=== PATIENT | male | born 1955 | race Caucasian/White ===

== ENCOUNTER 2016-10-27 14:44 | Inpatient (IN) | payer MEDICARE ==
[~2016-10-27] VITALS: Ht 198.1 cm; Wt 84.0 kg
[2016-10-27] MEDS ORDERED: [UNRECOGNIZED DRUG - REMARK] (15:04)
[2016-10-27] MEDS ORDERED: [UNRECOGNIZED DRUG - REMARK] (15:04)
--- NOTE | 2016-10-27 15:20 | NUR ---
Dr. Rahman arrived and is at bedside.
--- NOTE | 2016-10-27 15:40 | NUR ---
Three way f/c (22fr) placed by Dr. Meade, bladder irrigation started per order.
[2016-10-27 17:07] LABS: *BLOOD, URINE 3+ (NEGATIVE); *COLOR,URINE RED (YELLOW); *KETONES,URINE NEGATIVE (NEGATIVE); *PROTEIN,URINE 2+ (NEGATIVE); *UROBILINOGEN,URINE 0.2 E.U./dl (NORMAL); NITRITE, URINE NEGATIVE (NEGATIVE); UGLUCOSE NEGATIVE (NEGATIVE)
[2016-10-27 17:13] LABS: *BILIRUBIN,URIN NEGATIVE (NEGATIVE); *CLARITY,URINE BLOODY (CLEAR); LEUKOCYTE ESTERASE ,URINE 1+ (NEGATIVE)
[2016-10-27 17:14] LABS: RBC,URINE TNTC /HPF (0-3)
--- NOTE | 2016-10-27 17:27 | NUR ---
Pt trans to m/s floor, NAD noted.
[2016-10-27] MEDS ORDERED: OXCA600T5 PO (18:16)
[2016-10-27] MEDS ORDERED: MEMA10TA PO (18:16)
[2016-10-27 18:23] VITALS: BP 123/76
--- NOTE | 2016-10-27 18:28 | NUR ---
NEW ADMISSION TO ROOM 204. PATIENT ALERT AND ORIENTED IN NO ACUTE DISTRESS. DENIED PAIN. CONTINUES WITH URINE IRRIGATION. [address] WITH URINE BRIGHT RED IN COLOR. PATIENT SEEN BY DR. LUNA.
--- NOTE | 2016-10-27 19:00 | NUR ---
Received patient appears sleeping, but easily arousable when name called. Denies any pain at this time. On continues bladder irrigation as ordered with bright red urine output. No blood streaks/clots noted. F/C patency checked, no occlusion noted. Continue to monitor.
[2016-10-27 20:00] VITALS: BP 117/58
--- NOTE | 2016-10-27 23:12 | NUR ---
Ambulated to the bathroom with minimal assist. Had small BM this time. Urine needs close monitoring for increase hematuria
--- NOTE | 2016-10-28 02:39 | NUR ---
Still complaining of constipation, prune juice was given. Patient stated that he had regular BM and had one this AM but normally he goes to the BR 3x a day.
[2016-10-28 04:22] VITALS: BP 100/53
--- NOTE | 2016-10-28 05:18 | NUR ---
Patient became diaphoretic/clammy, weak and dizzy when he tried to force himself to defecate. VS taken 93/60, 93, 98%, 97.9. Blood sugar 121 mg/dl. Assisted back to bed with 2 people assist. Continue to monitor.
--- NOTE | 2016-10-28 06:33 | NUR ---
Resting comfortably at this time. Denies any dizziness, weakness or clammy. Continue to monitor.
--- NOTE | 2016-10-28 07:45 | NUR ---
received patietn on bed, many concerns with meds, bladder irrigation and bowel movements and bedpan use. made comfortable, reassured with plan of care and md collaboration. verbalized understanding.
[2016-10-28 08:27] LABS: BASOPHILS % (AUTO) 0.2 % (0.0-2.0); EOSINOPHILS # (AUTO) 0.3 K/uL (0.0-0.7); EOSINOPHILS % (AUTO) 2.1 % (0.0-7.0); HEMATOCRIT 40.8 % (40-50); HEMOGLOBIN 13.2 G/DL (14.0-18.0); LYMPHOCYTES # (AUTO) 1.4 K/UL (0.8-4.8); LYMPHOCYTES % (AUTO) 10.8 % (20.5-51.5); MEAN CORPUSCULAR HEMOGLOBIN 29.7 UUG (27.0-31.0); MEAN CORPUSCULAR HGB CONC 32 g/dL (32.0-37.0); MEAN CORPUSCULAR VOLUME 91.9 FL (82.0-92.0); MONOCYTES # (AUTO) 1.4 K/UL (0.1-1.30); MONOCYTES % (AUTO) 10.8 % (0.0-11.0); NEUTROPHILS # (AUTO) 9.6 K/UL (1.8-8.9); NEUTROPHILS % (AUTO) 76.1 % (38.5-71.5); PLATELET COUNT (AUTO) 230 K/UL (150-450); RED BLOOD CELL COUNT(AUTO) 4.44 MIL/UL (4.7-6.1); WHITE BLOOD COUNT (AUTO) 12.7 K/UL (4.0-11.2)
[2016-10-28 09:02] LABS: BILIRUBIN,TOTAL 0.6 mg/dL (0.2-1.0); MAGNESIUM 1.6 mg/dL (1.8-2.4); PHOSPHOROUS 2.4 mg/dL (2.5-4.9); POTASSIUM 3.9 mmol/L (3.5-5.1); TOTAL PROTEIN, SERUM 6.9 g/dL (6.4-8.2)
--- NOTE | 2016-10-28 09:30 | NUR ---
dr waldron in , saw patient, dc bladder irrigation, tolerated well by patient.
--- NOTE | 2016-10-28 10:00 | NUR ---
urine pinkish with mucoid reddish , fluid encouraged, verbalized understanding
[2016-10-28 10:07] LABS: THYROID STIMULATING HORMONE 1.344 mIU/mL (0.358-3.740)
[2016-10-28 12:01] VITALS: BP 95/60
--- NOTE | 2016-10-28 12:30 | NUR ---
friend in, supportive of care, brought meds from home, sent to pharmacy per protocol.
[2016-10-28 15:40] VITALS: BP 102/62
--- NOTE | 2016-10-28 17:11 | NUR ---
visitor at bedside, supportive of patient care. urine with mucous reddish , yellow urine, denies discomfort.
--- NOTE | 2016-10-28 19:30 | NUR ---
RECEIVED PATIENT LAYING COMFORTABLY IN BED. HOB ELEVATED. NO ACUTE DISTRESS NOTED. SAFETY INITIATED. CALL LIGHT WITHIN REACH. PATIENT IS ALERT AND ORIENTED X 4. NO C/O PAIN. FACIAL SYMMETRY. IV ON THE LEFT A/C PATENT AND INTACT. TOMLIN CARE PROVIDED. SKIN CHECK, SACRAL REDNESS. WILL CONTINUE TO MONITOR.
[2016-10-28 19:44] VITALS: BP 116/68
--- NOTE | 2016-10-28 20:50 | NUR ---
PATIENT REFUSED TO TAKE HIS NAMENDA. HE STATES THAT "THE AM NURSE HAD ALREADY GIVEN IT TO ME FROM HIS HOME MEDS BEFORE SHE LEFT". WILL CONTINUE TO MONITOR.
[2016-10-28 22:48] VITALS: BP 113/86
--- NOTE | 2016-10-29 05:45 | NUR ---
PATIENT REQUEST TO USE THE TOILET. CHARGE NURSE ASHLEY ASSISTED HIM TO THE TOILET. HE MADE A BM. SHORTLY AFTER, HE BECAME DIAPHORETIC AND WEAK. ASSISTED HIM BACK TO THE BED. B/P WAS LOW. GAVE HIM SOME ORAL FLUIDS, RECHECKED B/P, WENT BACK UP. PATIENT STATES "I FEEL BETTER NOW". WILL CONTINUE TO MONITOR.
[2016-10-29 06:32] VITALS: BP 101/67
--- NOTE | 2016-10-29 06:33 | NUR ---
VSS. B/P WENT UP 102/64 HR 89. WILL CONTINUE TO MONITOR.
--- NOTE | 2016-10-29 06:37 | NUR ---
PATEINT SLEPT INTERMITTENTLY T/O SHIFT. YANETH VANEGAS DISTRESS NOTED. AT AROUND 0545, PATIENT REQUEST TO USE THE TOILET. CHARGE NURSE ASHLEY ASSISTED HIM TO THE TOILET, SHE NOTICED THAT HE BECAME DIAPHORETIC AND WEAK. CHECKED HIS B/P, IT WAS LOW, 89/66. ASSISTED HIM BACK TO BED. GAVE HIM 2 CRANBERRY JUICE TO DRINK. B/P IMPROVED 96/65. PATIENT STATES HE FEELS BETTER. COMFORT AND SAFETY MAINTAINED T/O SHIFT. TOMLIN CARE PROVIDED, URINE IS RED, NOT CLEAR. ZGAURD APPLIED. ALL NEEDS MET. WILL CONTINUE TO MONITOR.
--- NOTE | 2016-10-29 07:10 | NUR ---
Received report from sales facilitator nurse, patient requested to get up and use the restroom. Assisted patient ambulate to the restroom, noted pt to be very weak, diaphoretic, dizziness reports, and unsteady gait. patient safely ambulated to bathroom and back, loose stool noted around commode upon rising.
[2016-10-29 07:44] LABS: CREATININE 1.4 mg/dL (0.6-1.3); MAGNESIUM 1.7 mg/dL (1.8-2.4); PHOSPHOROUS 3.4 mg/dL (2.5-4.9); POTASSIUM 3.8 mmol/L (3.5-5.1)
[2016-10-29 07:47] LABS: BASOPHILS % (AUTO) 0.2 % (0.0-2.0); EOSINOPHILS # (AUTO) 0.2 K/uL (0.0-0.7); EOSINOPHILS % (AUTO) 1.9 % (0.0-7.0); LYMPHOCYTES # (AUTO) 1.9 K/UL (0.8-4.8); LYMPHOCYTES % (AUTO) 15.4 % (20.5-51.5); MEAN CORPUSCULAR HEMOGLOBIN 30.7 UUG (27.0-31.0); MEAN CORPUSCULAR HGB CONC 34 g/dL (32.0-37.0); MEAN CORPUSCULAR VOLUME 91.2 FL (82.0-92.0); MONOCYTES # (AUTO) 1.2 K/UL (0.1-1.30); MONOCYTES % (AUTO) 9.6 % (0.0-11.0); NEUTROPHILS # (AUTO) 9.2 K/UL (1.8-8.9); NEUTROPHILS % (AUTO) 72.9 % (38.5-71.5); PLATELET COUNT (AUTO) 231 K/UL (150-450); WHITE BLOOD COUNT (AUTO) 12.5 K/UL (4.0-11.2)
[2016-10-29 07:53] LABS: HEMATOCRIT 47.2 % (40-50); HEMOGLOBIN 15.9 G/DL (14.0-18.0); RED BLOOD CELL COUNT(AUTO) 5.17 MIL/UL (4.7-6.1)
[2016-10-29] MEDS ORDERED: OXCA300T PO ×2 (10:30→10:31)
[2016-10-29 12:00] VITALS: BP 96/64
[2016-10-29 15:56] VITALS: BP 100/59
--- NOTE | 2016-10-29 18:40 | NUR ---
patient has been very weak throughout the day, and needed assistance ambulating to the bathroom. Patient has been getting diaphoretic and dizzy with ambulation. Patient has not had a significant appetite and has been nauseas. PT evaluated patient and advised use of a walker and placement in SNF or ARU. Currently patient in bed, mild nausea, side rails up x2, bed in low position.
--- NOTE | 2016-10-29 19:08 | NUR ---
Bladder scan revealed 61cc, patient voiding in toilette/diaper
[2016-10-29 20:00] VITALS: BP 99/64
--- NOTE | 2016-10-30 02:10 | NUR ---
PATIENT IS ALERT AND ORIENTED X4. VSS. IV CATH IS LEAKING REINSERTED ON LEFT FOREARM. PLACED ON CONTACT ISOLATION, STOOL C. DIFF RESULT PENDING. PATIENT REFUSED TO TAKE HOSPITAL STOCK DOSE OF NEMENDA FOR HS DOSE, GIVEN HIS OWN STOCK INSTEAD FOUND IN THE MEDICATION ROOM. PATIENT REPORTED 1 EPISODE OF LOSE STOOL BUT WITH IMPROVE ABDOMINAL PAIN. OTHERWISE PATIENT IS URINATING GOOD WITH NO PAIN OR HEMATURIA. CALL LIGHT WITHIN REACH. WILL KEEP MONITORED.
[2016-10-30 05:31] VITALS: BP 104/63
--- NOTE | 2016-10-30 06:04 | NUR ---
PATIENT SLEPT GOOD THROUGH THE NIGHT. NO MORE DIARRHEA NOTED. VSS. NO RESPIRATORY DISTRESS OR COMPLAINT OF ABDOMINAL PAIN. ALL NEEDS ATTENDED.
[2016-10-30 08:12] LABS: BILIRUBIN,TOTAL 0.3 mg/dL (0.2-1.0); CREATININE 2.1 mg/dL (0.6-1.3); MAGNESIUM 2.4 mg/dL (1.8-2.4); POTASSIUM 4.2 mmol/L (3.5-5.1)
[2016-10-30 10:42] LABS: HEMATOCRIT 47.3 % (40-50); HEMOGLOBIN 15.6 G/DL (14.0-18.0); LYMPHOCYTES % (AUTO) 18.8 % (20.5-51.5); MEAN CORPUSCULAR HEMOGLOBIN 30.4 UUG (27.0-31.0); MEAN CORPUSCULAR HGB CONC 33 g/dL (32.0-37.0); MEAN CORPUSCULAR VOLUME 92.1 FL (82.0-92.0); NEUTROPHILS % (AUTO) 63.3 % (38.5-71.5); PLATELET COUNT (AUTO) 247 K/UL (150-450); RED BLOOD CELL COUNT(AUTO) 5.13 MIL/UL (4.7-6.1); WHITE BLOOD COUNT (AUTO) 12.4 K/UL (4.0-11.2)
[2016-10-30 10:43] LABS: BASOPHILS % (AUTO) 0.3 % (0.0-2.0); EOSINOPHILS % (AUTO) 2.8 % (0.0-7.0); MONOCYTES % (AUTO) 14.8 % (0.0-11.0)
[2016-10-30 11:40] VITALS: BP 96/59
[2016-10-30 15:55] VITALS: BP 99/60
--- NOTE | 2016-10-30 19:00 | NUR ---
Received patient in bed, awake, watching TV. Denies any pain/discomforts at this time. Continue care as palnned.
[2016-10-30 20:09] VITALS: BP 130/72
[2016-10-31 04:00] VITALS: BP 103/58
--- NOTE | 2016-10-31 06:46 | NUR ---
Slept intermittently. No complaint of pain presented. Assisted to the BR several times. Urinal/diaper encouraged to avoid fall/injury due to orthostatic hypotension. All needs attended and met. No significant event reported all night.
[2016-10-31 07:23] LABS: CREATININE 1.5 mg/dL (0.6-1.3); MAGNESIUM 1.9 mg/dL (1.8-2.4); PHOSPHOROUS 3.8 mg/dL (2.5-4.9); POTASSIUM 4.4 mmol/L (3.5-5.1)
--- NOTE | 2016-10-31 07:30 | NUR ---
pt sleeping in bed, awakens to name. no signs of distress. does not want to eat breakfast at this time, left at bedside. reminded to use call light when restroom need arises, pt verbalized understanding, call light in reach will continue to monitor
[2016-10-31 08:25] LABS: WHITE BLOOD COUNT (AUTO) 11.3 K/UL (4.0-11.2)
[2016-10-31 08:26] LABS: BASOPHILS % (AUTO) 0.5 % (0.0-2.0); EOSINOPHILS % (AUTO) 3.3 % (0.0-7.0); HEMATOCRIT 44.3 % (40-50); HEMOGLOBIN 14.5 G/DL (14.0-18.0); LYMPHOCYTES # (AUTO) 2.7 K/UL (0.8-4.8); LYMPHOCYTES % (AUTO) 24.2 % (20.5-51.5); MEAN CORPUSCULAR HEMOGLOBIN 30.3 UUG (27.0-31.0); MEAN CORPUSCULAR HGB CONC 33 g/dL (32.0-37.0); MEAN CORPUSCULAR VOLUME 92.5 FL (82.0-92.0); MONOCYTES # (AUTO) 1.6 K/UL (0.1-1.30); MONOCYTES % (AUTO) 14.3 % (0.0-11.0); NEUTROPHILS # (AUTO) 6.5 K/UL (1.8-8.9); NEUTROPHILS % (AUTO) 57.7 % (38.5-71.5); PLATELET COUNT (AUTO) 265 K/UL (150-450); RED BLOOD CELL COUNT(AUTO) 4.79 MIL/UL (4.7-6.1)
[2016-10-31 08:27] LABS: BASOPHILS # (AUTO) 0.1 K/uL (0.0-8.0); EOSINOPHILS # (AUTO) 0.4 K/uL (0.0-0.7)
[2016-10-31 11:07] VITALS: BP 103/58
[2016-10-31 11:08] VITALS: BP 123/60
[2016-10-31] MEDS ORDERED: TAMS-3 PO (13:11)
--- NOTE | 2016-10-31 15:12 | NUR ---
DISCHARGE ORDER NOTED. IV REMOVED WITH NO REDNESS OR IRRITATION NOTED, ALL BELONGINGS ACCOUNTED FOR AND SENT HOME WITH PATIENT. PATIENT FRIEND AT BEDSIDE, WILL TAKE PATIENT HOME. PRESCRIPTION FAXED TO PHARMACY PER PATIENT REQUESTS. PT TAKEN DOWN IN WHEELCHAIR AND LEFT IN PRIVATE CAR WITH FRIEND.
--- NOTE | 2016-11-01 13:00 | NUR ---
CM/RN Spoke to patient regarding progress with physical therapy. 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 Spoke to PT as well. Assessment done by ARU PT Ximena to see if patient is a good candidate. According to PT Ximena patient has reached his baseline. Although patient approved by Dr. Guzmán. Dr. Guzmán notified of update. Patient prefers to be discharged home and is not a good candidate for SNF. Patient reports having resources and friends to assist with his transportation needs. Patient agreeable with plan to go home.
== END 2016-10-31 15:10 | disposition home or self-care (01) | DRG 696 ==
LOC: ER 14:44 → MED 17:24
PROVIDERS: ADMIT Internal Medicine; ATTEND Internal Medicine
PROC: 0T9B70Z Drainage of Bladder with Drainage Device, Via Natural or Artificial Opening (ICD-10-PCS; principal; 2016-10-27)
DX: R31.0 Gross hematuria (principal); N17.0 Acute kidney failure with tubular necrosis; E83.42 Hypomagnesemia; E83.39 Other disorders of phosphorus metabolism; G40.909 Epilepsy, unspecified, not intractable, without status epilepticus; Z85.46 Personal history of malignant neoplasm of prostate; Z90.5 Acquired absence of kidney; Z90.81 Acquired absence of spleen; Z90.49 Acquired absence of other specified parts of digestive tract; R33.9 Retention of urine, unspecified; Z85.528 Personal history of other malignant neoplasm of kidney; I95.1 Orthostatic hypotension; Z85.820 Personal history of malignant melanoma of skin; Z85.841 Personal history of malignant neoplasm of brain
CPT/HCPCS: 36415; 71010; 76775; 83550; 83735; 84100; 84443; 85025; 87086; 93005; 97110; 97116; 97530; A4217; A4663; J0696; J1956; J2405; J3475; J3480; J7042; J7050; J7060